=== PATIENT | male | born 1955 | race African-American/Black ===

== ENCOUNTER 2016-12-26 17:38 | Inpatient (IN) | payer OTHER ==
[~2016-12-26] VITALS: Ht 167.6 cm; Wt 72.6 kg
--- NOTE | ~2016-12-26 | EKG ---
[address] [place] [address] ELECTROCARDIOGRAM REPORT Name: TONYA KITCHEN Room #: 416-P ADM IN M.R.#: [id number] Admission: 12/26/16 Attend Phys: Olga Hurtado MD Discharge: Date of : 57 Report #: [id number] THIS REPORT FOR: //name// [facility] ED Test Date: 2016-12-26 Test Time: 17:48:06 Pat Name: TONYA KITCHEN Department: Room: 416 P Gender: M Rn Psych: MARY : 1955 Requested By: Gunner Guardado Order Number: [id number] MD: Bubba Cruz Measurements Intervals [place] Rate: 97 P: 77 SD: 157 QRS: -48 QRSD: 113 T: QT: 361 QTc: 459 Interpretive Statements Sinus rhythm Left ventricular hypertrophy with repolarization abnormality Inferior infarct, old Poor R wave progression Baseline wander in lead(s) V3 Compared to ECG 08/05/2016 06:55:39 No significant changes Electronically Signed On 12-27-2016 7:28:19 CDT by Bubba Cruz [email or web address] <ELECTRONICALLY SIGNED> By: Bubba Cruz MD, [facility] 12/27/16 0728 1748 1748 Bubba Cruz MD, [facility] /EPI
--- NOTE | ~2016-12-26 | EKG ---
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 : 1955 Requested By: Gunner Guardado Order Number: [id number] MD: Bubba Cruz Measurements Intervals [place] Rate: 93 P: 74 [place]: 154 QRS: -51 QRSD: 115 T: -48 QT: 369 QTc: 459 Interpretive Statements Sinus rhythm Nonspecific IVCD with LAD Left ventricular hypertrophy with repolarization abnormality Inferior infarct, age indeterminate Compared to ECG 08/05/2016 06:55:39 No change Electronically Signed On 12-27-2016 7:28:46 CDT by Bubba Cruz [email or web address] <ELECTRONICALLY SIGNED> By: Bubba Cruz MD, [facility] 12/27/16 0728 1759 1759 Bubba Cruz MD, [facility] /EPI
--- NOTE | ~2016-12-26 | HC ---
[facility] [place] [address] CONSULTATION Name: TONYA KITCHEN JR Room #: 416-P [facility] IN M.R.#: [id number] Admission: 12/26/16 Attend Phys: Olga Hurtado MD Discharge: 12/30/16 Date of : 57 Report #: [id number] THIS REPORT FOR: //name// CC: Randall Cruz MD [facility] physician/PCP Olga Hurtado MD Clinic HISTORY OF PRESENT ILLNESS: The patient is a very pleasant 61-year-old after male originally from [place], [place] who came to the Emergency Room with sudden onset of the left abdominal pain and flank pain. He has a history of kidney stones and that what was found to be was the left side obstructing ureteral calculi, was admitted for this. REASON FOR CONSULTATION: Abnormal CAT scan. As part of his workup, he had CAT scans that without contrast of the chest, abdomen and pelvis. CT of the chest raised a question of a two right-sided lung nodules, one in the right middle lobe, the other in the right upper lobe and determine the nature with "moderate mediastinal adenopathy present and fullness of the hilum is present, small hilar lymph nodes may also be present. Note, this was done without IV contrast, there whether this may be a malignant process of unknown etiology, and suggest that CT abdomen and pelvis with IV and oral contrast, the patient's abdomen and pelvis contrast had showed two calculi in the left ureteral causing trouble one 6 and one 6.5 mm. LABORATORY DATA: Done here show a BUN 16, creatinine of 1.1. Glucose 119. AST on admission had been 43, albumin had been normal. ALT had been elevated a 71, white cell count 6.3, hemoglobin 13.1, platelets 235. Differential fairly nonacute. UA did show some red cells. PAST MEDICAL HISTORY: Notable for coronary artery disease and stenting, also hypertension, hyperlipidemia, gastroesophageal reflux disease, nephrolithiasis, supposedly systolic heart failure with an EF of 30%. PAST SURGICAL HISTORY: Includes stenting times 2, lithotripsy. FAMILY HISTORY: Father had diabetes, cholesterol difficult and hypertension, mother no specific health issues, four brothers alive and well, two sisters alive and well. 4 children without health issues. 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 He likes reading mysteries and also science fiction. He has watched quite a few shows on [employer] including Nanosys, The 100, Marcella Norris Chronicles of [facility]. Smoked about a half pack a day for 40 [facility] [address] [place] [address] CONSULTATION Name: TONYA KITCHEN Room #: 416-P [facility] IN M.R.#: [id number] Admission: 12/26/16 Attend Phys: Olga Hurtado MD Discharge: 12/30/16 Date of : 57 Report #: [id number] years. Alcohol, occasional, glass of wine. No street drugs. REVIEW OF SYSTEMS: As above. Denies fevers, chills. Did have queasy stomach, has not had bowel movement in probably about a week. He has never had a colonoscopy or EGD, he is not aware of any blood in his urine or stool. No arm or leg swelling. No weight change, no significant breathing difficulties. No coughing of blood. PHYSICAL EXAMINATION: GENERAL: The patient appears his stated age. He is alert and oriented x 3. Height is 5 feet 6 inches, which is 167.6 cm, weight 160 pounds, which is 72.6 kilograms. VITAL SIGNS: Blood pressure is 113/65, O2 sat 92%, respirations 14, temperature 97.1, pulse is 86. MOOD: The patient is alert and pleasant, somewhat anxious. NEUROLOGIC: Face is symmetrical, he was moving all extremities. Speech pattern is normal. LYMPHATICS: No lymph nodes enlargement, supraclavicular, cervical, axillary or inguinal region. ABDOMEN: Soft, without masses, is slightly obese. EXTREMITIES: Without clubbing, cyanosis or edema. ASSESSMENT AND PLAN: 1. Indeterminate nodules and possible lymphadenopathy, we will order CT chest, abdomen and pelvis with contrast. The patient given is my card if he goes home, this could be he could called me for results as outpatient, depending upon results might consider bronchoscopy or just follow up 2. Kidney stones. We will defer to Dr. Churchill notice. 3. History of coronary artery disease, hypertension. Defer to Dr. Cruz and doctors at the [facility]. 4. Gastroesophageal reflux disease. Defer to those other doctors. 5. Systolic heart failure. Continues lisinopril and carvedilol, followup will depend upon results. The patient will call for results. CURRENT MEDICATIONS: In the hospital include MiraLax 17 grams daily, nicotine 14mg patch daily, Xanax 0.5 t.i.d., bisacodyl p.r.n., docusate 100 b.i.d., lisinopril 10 daily, 81 mg aspirin daily, carvedilol 6.25 b.i.d. At home, his medications have included Plavix 75 daily, carvedilol 6.25 b.i.d., lisinopril 10 daily, spironolactone 50 daily, aspirin 81 daily and Lasix 40 mg daily. <ELECTRONICALLY SIGNED> By: Lj Silverman MD 12/30/162004 0821 1523 Lj Silverman MD /nt
--- NOTE | ~2016-12-26 | H ---
[facility] [place] [address] HISTORY AND PHYSICAL Name: TONYA KITCHEN JR Room #: 416-P [facility] IN .R.#: [id number] Admission: 12/26/16 Attend Phys: Olga Hurtado MD Discharge: 12/30/16 Date of : 57 Report #: [id number] THIS REPORT FOR: //name// CC: FAM physician/PCP Olga Hurtado DATE OF SERVICE: 12/26/2016 ATTENDING PHYSICIAN: Dr. Olga Hurtado. PRIMARY CARE PHYSICIAN: At [facility]. CHIEF COMPLAINT: Left flank and left abdominal pain. HISTORY OF PRESENT ILLNESS: The patient is a 61-year-old -Togol[place] male, who came into the ER with sudden onset left-sided abdominal pain and flank pain. He says the pain started in his left flank area and radiates around his left lower abdomen and into his groin area. It started today and has remained constant. He says that some of the groin pain is worse when he tries to urinate. Overall he did have some difficulty producing urine today and was only able to produces few dribbles. He had one episode of nausea with vomiting. He has a history of nephrolithiasis and says this feels somewhat similar. He was noted in the ER to have left-sided obstructing ureter calculi and has been admitted for further treatment. PAST MEDICAL HISTORY: Coronary artery disease, hypertension, hyperlipidemia, GERD, nephrolithiasis, systolic heart failure with an EF of 30%. PAST SURGICAL HISTORY: Coronary stent x 2, and lithotripsy. ALLERGIES: None. HOME MEDICATIONS: Plavix 75 mg daily, carvedilol 6.25 mg b.i.d., lisinopril 10 mg daily, spironolactone 50 mg daily, aspirin 81 mg daily, Lasix 40 mg daily. SOCIAL HISTORY: The patient smokes half pack of cigarettes per day. He has been smoking for at least 40 years. He does drink an occasional glass of wine. Denies any drug use. 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 FAMILY HISTORY: Not pertinent to this hospitalization. REVIEW OF SYSTEMS: The patient was here in July for chest pain. At that time, he underwent a cardiac catheterization, which showed apical occlusion of the LAD. On the catheterization, his EF was 30%. Per records state that he was supposed to follow up with Cardiology in 3 months to further evaluate, if the medications he is on is helping his heart failure and also does state he was a [facility] [address] [place] [address] HISTORY AND PHYSICAL Name: TONYA KITCHEN Room #: 416-P [facility] IN [facility]#: [id number] Admission: 12/26/16 Attend Phys: Olga Hurtado MD Discharge: 12/30/16 Date of : 57 Report #: [id number] candidate for an AICD. He says he thinks he saw a new trackless trolley driver at the [facility] since he was discharged, but he is not sure if he had a followup echocardiogram. LABORATORY DATA AND DIAGNOSTICS: WBC is 8.7, hemoglobin 14.5, platelets 250. Sodium 133, potassium 4.1, BUN 15, creatinine 1.3, glucose is 120. LFTs showed AST of and ALT of 71. Alkaline phosphatase 104, lipase is 120. UA showed 3+ blood, negative leukocyte esterase, negative wbc's, there was 3+ blood, bacteria few. CT of abdomen and pelvis done without contrast shows 2 calculi producing proximal left ureteral obstruction; this includes a 6 x 6.4 mm size calculus in the left UPJ and the second 4 x 5 x 6.5 mm calculus in the left ureter at the level of the upper SI joint. There are several additional slightly larger calculi within the central and lower left kidney. There is an incidental finding of a noncalcified nodule on the left aspect of the right middle lobe, this measures 10 x 14 mm. ASSESSMENT AND PLAN: 1. Left obstructing ureteral calculi. We will keep him n.p.o. and have Urology evaluate, start Flomax. We will hold off on any aggressive IV fluids, because of his underlying heart failure status. 2. Chronic systolic heart failure. The patient has last known ejection fraction of 30%. He did receive some fluid in the Emergency Room. We will hold off on any further aggressive IV fluids and continue home meds. At this time, we will hold his diuretics. He will need to follow up with his Cardiology outpatient to further evaluate if he needs an automatic implantable cardioverter-defibrillator placement. 3. History of heart disease with stents. The patient is denying any chest pain. 4. Hypertension. Blood pressure is stable, continue home meds. 5. Hyperlipidemia. This has been stable. 6. Deep venous thrombosis prophylaxis. Place sequential compression devices. We will continue to follow the patient closely throughout the hospitalization and make changes based on clinical status. <ELECTRONICALLY SIGNED> By: SHYANN Velasco 12/31/16 0658 0603 0640 SHYANN Velasco /nt
--- NOTE | ~2016-12-26 | O ---
[facility] [place] [address] OPERATIVE REPORT Name: TONYA KITCHEN JR Room #: 416-P ADM IN M.R.#: [id number] Admission: 12/26/16 Attend Phys: Olga Hurtado MD Discharge: Date of : 57 Report #: [id number] THIS REPORT FOR: //name// CC: SEE physician/PCP Olga Hurtado SURGEON: Randall Churchill MD UNDERWRITING SALES REPRESENTATIVE: None. PREOPERATIVE DIAGNOSIS: Left ureteral and renal calculi. POSTOPERATIVE DIAGNOSIS: Left ureteral and renal calculi. PROCEDURE: Left ureteroscopy with balloon dilation of ureteral orifice, laser lithotripsy, basket stone extraction, and 4.5 x 26 double-J ureteral stent placement. COMPLICATIONS: None. ANESTHESIA: General. ESTIMATED BLOOD LOSS: None. DESCRIPTION OF PROCEDURE: The patient was taken to the operating room, general anesthesia was induced. The patient was prepped and draped in usual sterile fashion in the dorsal lithotomy position. The meatus was entered with rigid cystoscope. Anterior urethra was normal other than some thin strictures, which dilated up easily with the scope. The prostate was entered and was mildly obstructing. The bladder mucosa was then examined and completely normal. Ureteral orifices were orthotopic bilaterally. Left ureteral orifice was then cannulated with a 0.035 sensor wire. This was advanced up into the kidney. The ureteral orifice was way too tight to accommodate the semi-rigid ureteroscope. I therefore balloon dilated this with an 18-Ugandan x 4 cm UroMax balloon. I then performed semi-rigid ureteroscopy. Two ureteral stones were encountered. These were too large to basket and remove. These were fragmented using a holmium laser with 365 micron fiber. I then used 1.9 Ugandan Nitinol basket to basket and remove all of the stones. I then placed a dual lumen catheter and a second wire was then placed. I then placed a 09/18 ureteral access sheath. I then performed digital flexible ureterorenoscopy. There were numerous small stones which were basketed and removed. There was one large one that was too large to remove. I placed it in the upper pole and then used a 200 micron fiber with the holmium laser to fragment it. All significant pieces were basketed and removed. There were no residual fragments. The ureter was inspected. There were no residual ureteral fragments. I therefore withdrew the ureteroscope and access [address] [address] OPERATIVE REPORT Name: TONYA KITCHEN Room #: 416-P [facility] IN ..#: [id number] Admission: 12/26/16 Attend Phys: Olga Hurtado MD Discharge: Date of : 57 Report #: [id number] sheath. I then replaced the cystoscope. A 4.5 x 26 double-J ureteral stent was advanced over the wire. The dangle was removed and the stent was deployed. Excellent curl was seen proximally and distally. The patient tolerated the procedure well. He is away from anesthesia and transferred to recovery in satisfactory condition. There were no immediate complications. He was counseled extensively preoperatively on the importance of followup for stent removal. He will follow up with me next week to have his stent removed. We also discussed his lung nodule. Risk of malignancy discussed. He will follow up with his primary care physician regarding this. <ELECTRONICALLY SIGNED> By: Randall Churchill MD 12/28/16 1014 2036 2302 Randall Churchill MD /nt
[~2016-12-26 17:38] MED LIST: ACETAMINOPHEN325 M1 PO; ADULT LOW DOSE81 MG PO; ASPIRIN EC81 M1 PO; ASPIRIN81 M2; ATORVASTATIN CA40 MG PO; CARVEDILOL6.25 MG PO; CLOPIDOGREL75 MG PO; HIGH BP MED; HIGH CHOLESTEROL; LASIX 20 MG TAB20 MG PO; LIPITOR40 MG PO; LISINOPRIL10 MG PO; LISINOPRIL2.5 MG PO; LISINOPRIL5 MG PO; LOPRESSOR 12.12.5 MG PO; LOPRESSOR25 PO; NITROGLYCERIN0.4 MG SL; NOHOMEMEDICATIONS; PEPCID AC20 M1 PO; PLAVIX 75 MG TA75 M1 PO; PRILOSEC 20 MG20 MG PO; SPIRONOLACTONE25 M1 PO; ZANTAC 150MG T150 MG PO
[2016-12-26 17:41] VITALS: BP 167/101
[2016-12-26 18:13] LABS: HEMATOCRIT 42.8 % (42.0-52.0); HEMOGLOBIN 14.5 gm/dL (14.0-18.0); MCH 32.2 pg (26.0-34.0); MCHC 33.8 g/dL (28.0-37.0); MCV 95.1 fL (80.0-100.0); RDW 13.9 % (10.5-14.5); WBC 8.7 thou/uL (4.0-11.0)
[2016-12-26 18:14] LABS: ABSOLUTE NEUTROPHILS 6.3 thou/uL (1.4-8.2); BASOPHILS 0.6 % (0.0-2.0); EOSINOPHILS 0.3 % (0.0-3.0); LYMPHOCYTES 20.6 % (24.0-44.0); PLATELET COUNT 250 thou/uL (150-400); POLYS 72.5 % (36.0-66.0)
[2016-12-26 18:17] LABS: MANUAL DIFF NO
[2016-12-26 18:26] LABS: CALCIUM 8.9 mg/dL (8.5-10.1); CREATININE 1.3 mg/dL (0.6-1.3); POTASSIUM 4.1 mmol/L (3.5-5.1)
[2016-12-26 18:30] LABS: ALBUMIN 3.9 g/dL (3.4-5.0); TOTAL BILIRUBIN 0.4 mg/dL (<0.1-1.0); TOTAL PROTEIN 7.2 g/dL (6.4-8.2)
[2016-12-26 19:08] LABS: URINE BILIRUBIN NEGATIVE (Negative); URINE BLOOD 3+ (Negative); URINE COLOR YELLOW; URINE GLUCOSE-RANDOM* NEGATIVE (Negative); URINE KETONES TRACE (Negative); URINE LEUKOCYTES-REFLEX NEGATIVE (Negative); URINE PROTEIN (DIPSTICK) NEGATIVE (Negative); URINE SPECIFIC GRAVITY 1.025 (1.003-1.035); URINE UROBILINOGEN 0.2 E.U./dl (0.2-1.0)
[2016-12-26 19:25] LABS: CASTS None Seen /LPF (None Seen); CRYSTALS None Seen /LPF (None Seen); SQUAMOUS 0-3 Few /LPF (0-3); URINE WBC-REFLEX 0-5 Rare /HPF (0-5); WBC CLUMPS Few (None Seen)
[2016-12-26 20:35] VITALS: BP 149/76
[2016-12-27] VITALS (8 sets, daily range): BP systolic 128–154; BP diastolic 70–98
[2016-12-28] VITALS: BP 148/91
[2016-12-28 01:30] VITALS: BP 131/71
[2016-12-28 05:23] LABS: HEMATOCRIT 41.9 % (42.0-52.0); HEMOGLOBIN 13.9 gm/dL (14.0-18.0); MCH 31.7 pg (26.0-34.0); MCHC 33.1 g/dL (28.0-37.0); MCV 95.8 fL (80.0-100.0); RBC 4.37 mil/uL (4.50-6.00); RDW 13.5 % (10.5-14.5); WBC 7.2 thou/uL (4.0-11.0)
[2016-12-28 05:37] LABS: CALCIUM 8.3 mg/dL (8.5-10.1); CREATININE 1.7 mg/dL (0.6-1.3); POTASSIUM 4.8 mmol/L (3.5-5.1)
[2016-12-28 08:00] VITALS: BP 137/85
[2016-12-28 16:00] VITALS: BP 125/72
[2016-12-28 20:15] VITALS: BP 146/80
[2016-12-29 04:57] VITALS: BP 141/86
[2016-12-29 05:32] LABS: HEMOGLOBIN 13.5 gm/dL (14.0-18.0); MCH 32.5 pg (26.0-34.0); MCHC 33.9 g/dL (28.0-37.0); MCV 95.9 fL (80.0-100.0); RBC 4.17 mil/uL (4.50-6.00); RDW 13.5 % (10.5-14.5); WBC 8.1 thou/uL (4.0-11.0)
[2016-12-29 05:47] LABS: CALCIUM 8.5 mg/dL (8.5-10.1); CREATININE 1.2 mg/dL (0.6-1.3); POTASSIUM 4.3 mmol/L (3.5-5.1)
[2016-12-29 08:00] VITALS: BP 124/61
[2016-12-29 12:00] VITALS: BP 152/77
[2016-12-29 16:00] VITALS: BP 144/89
[2016-12-29 20:00] VITALS: BP 115/59
[2016-12-30 04:39] VITALS: BP 113/65
[2016-12-30 06:56] LABS: HEMATOCRIT 39.1 % (42.0-52.0); HEMOGLOBIN 13.1 gm/dL (14.0-18.0); MCHC 33.6 g/dL (28.0-37.0); MCV 95.2 fL (80.0-100.0); RBC 4.1 mil/uL (4.50-6.00); RDW 13.5 % (10.5-14.5); WBC 6.3 thou/uL (4.0-11.0)
[2016-12-30 07:05] LABS: CALCIUM 8.2 mg/dL (8.5-10.1); CREATININE 1.1 mg/dL (0.6-1.3); POTASSIUM 3.9 mmol/L (3.5-5.1)
[2016-12-30 08:00] VITALS: BP 122/78
[2016-12-30 08:35] LABS: ALKALINE PHOSPHATASE 93 U/L (46-116); DIRECT BILIRUBIN < 0.1 mg/dL (<0.1-0.3); SGOT 32 U/L (15-37); SGPT 56 U/L (30-65); TOTAL BILIRUBIN 0.4 mg/dL (<0.1-1.0); TOTAL PROTEIN 6.1 g/dL (6.4-8.2)
[2016-12-30] MEDS ORDERED: NICOTINE TRANSD14 M1 TRANSDERM (13:02)
[2016-12-30] MEDS ORDERED: HYDROCODONE-AP1 EAC6 PO (13:02)
[2016-12-30] MEDS ORDERED: XANAX 0.5 MG0.5 MG PO (13:02)
[2016-12-30 14:19] VITALS: BP 122/78
== END 2016-12-30 15:32 | disposition home or self-care (01) | DRG 668 ==
LOC: ER 17:38 → 4N 19:32 → EROBS 19:32 → 4N 20:07
PROVIDERS: Emergency Medicine; Family Medicine; Internal Medicine Hematology & Oncology
DX: N20.2 Calculus of kidney with calculus of ureter (principal); N17.0 Acute kidney failure with tubular necrosis; I13.0 Hypertensive heart and chronic kidney disease with heart failure and stage 1 through stage 4 chronic kidney disease, or unspecified chronic kidney disease; I50.22 Chronic systolic (congestive) heart failure; R91.1 Solitary pulmonary nodule; E78.5 Hyperlipidemia, unspecified; F41.9 Anxiety disorder, unspecified; K21.9 Gastro-esophageal reflux disease without esophagitis; N18.2 Chronic kidney disease, stage 2 (mild); I25.10 Atherosclerotic heart disease of native coronary artery without angina pectoris; F17.210 Nicotine dependence, cigarettes, uncomplicated; R74.0 Nonspecific elevation of levels of transaminase and lactic acid dehydrogenase [LDH]; R59.0 Localized enlarged lymph nodes; Z95.5 Presence of coronary angioplasty implant and graft; Z87.442 Personal history of urinary calculi; Z83.3 Family history of diabetes mellitus; Z82.49 Family history of ischemic heart disease and other diseases of the circulatory system; Z79.82 Long term (current) use of aspirin; Z79.899 Other long term (current) drug therapy
CPT/HCPCS: 10091; 50010; 50101; 50164; 50478; 51776; 53331; 53650; 56815; 62110; 62900; 70005

== ENCOUNTER 2017-04-03 05:22 | Day surgery (SDC) | payer OTHER ==
[~2017-04-03] VITALS: Ht 167.6 cm; Wt 76.6 kg
--- NOTE | ~2017-04-03 | CNG ---
[facility] Evelyn Guillaume [place] [address] CYTO-NONGYN REPORT PROCEDURE Name: CHRISTIAN FERNANDO Room #: DEP [facility]#: [id number] Admission: 04/03/17 Date of : 57 Discharge: 04/03/17 Report #: [id number] Path Case #: [id number] CYTOPATHOLOGY REPORT COLLECTION DATE: 04/03/2017 RECEIVED DATE: 04/03/2017 SUBMITTING PHYS: Dr. Liban Arriaga OTHER PHYS: CLINICAL HISTORY: Mediastinal adenopathy, pulmonary nodules. See also [id number]. PROCEDURE: A. Passes performed by Dr. Arriaga yielding fluid. Four H and E slides, and 50 mL from needle rinsed in formalin were submitted to the lab. . SPECIMEN(S) RECEIVED: A.EBUS guided Fine needle aspiration, lymph node 4R B.Bronchoalveolar lavage, RML * * * * * * * * * * * * FINAL DIAGNOSIS: A. 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 B. Lung, right middle lobe, bronchoalevolar lavage: - RARE ATYPICAL CELLS IDENTIFIED, LIKELY REACTIVE. - Numerous reactive bronchial epithelial cells, and alveolar macrophages present in the background. (IUV:malik; 04/07/2017) COMMENT: Examination shows cohesive groups of cells with scattered rare areas of apoptotic bodies, necrosis, as well as nuclear molding. Occasional to rare nucleoli are present. The malignant groups show ample cytoplasm in scattered groups. Immunohistochemical stains are performed on the cell block material (part A of this case). P63: Nonreactive TTF1: Reactive P40: Nonreactive Napsin: Nonreactive Synaptophysin: Granular reactivity present CD56: Membranous reactivity present Based on the morphologic features as well as the immunohistochemical stains, the tumor represents a high grade neuroendocrine carcinoma. There are few groups of small cell, and other groups of large cell identified. The tumor may represent a combination of small cell neuroendocrine carcinoma as well as a large cell neuroendocrine [facility] [address] [place] [address] CYTO-NONGYN REPORT PROCEDURE Name: CHRISTIAN FERNANDO Room #: [facility].#: [id number] Admission: 04/03/17 Date of : 57 Discharge: 04/03/17 Report #: [id number] Path Case #: [id number] carcinoma. Portion of this specimen was sent for flow cytometric analysis to [facility], ([id number]) and it showed a specimen with low viability and no abnormal cell population in the analyzed cells. Please see separate report for details. Co-review: Dr. Nida Beth Findings of this case are discussed with Dr. Liban Arriaga at approximately 5:00 p.m. on 03/08/2017. PATHOLOGIST: Hortencia Mullins M.D. REPORT ELECTRONICALLY SIGNED BY: Hortencia Mullins M.D. DATE/TIME: 04/07/2017 16:01 * * * * * * * * * * * * GROSS PATHOLOGY: A. EBUS guided Fine needle aspiration, lymph node 4R: The specimen is labeled "Christian Fernando JR" and consists of four H and E slides. Fifty mL of brown fluid in formalin from the needle rinse is also submitted and a cell block only was prepared from this material. RPMI sent to [facility] by [facility]. Wright Bronchoalveolar lavage, RML: The specimen is submitted unfixed, labeled "Christian Fernando JR". Received by the Cytology Department is 15 mL of red fluid. One ThinPrep slide was prepared. (clt 04.03.2017) IMMEDIATE EVALUATION: A. Pass1: Per Dr. Beth: Atypical cells present and blood, please redirect. B. Pass 7: Redirected pass. Atypical cells, lymphoid tissue present and blood. Professional services performed under supervision of [facility] Classification Counselor at [address] [place] [address] , [place] [address]. SHOWROOM SALES ASSISTANT(S): HOWIE Marsh(ASCP) INITIAL CPT CODE(S): A; 69096, 84080, 69382, 32463, 32137, 01986, 61198, 51883, 86065, 01789 B; 58510 Professional services performed by [facility] at [address] , [place] [address] Technical services performed by [facility] at [address] [place] [address], [address], [place] [address]. CC: Dr. Kunal Dobbins [address] [address] CYTO-NONGYN REPORT PROCEDURE Name: CHRISTIAN FERNANDO JR Room #: DEP [facility] Alicia#: [id number] Admission: 04/03/17 Date of : 57 Discharge: 04/03/17 Report #: [id number] Path Case #: [id number] [facility], [address] [place] [address] PHONE: [phone] DIRECTOR: Mich Ordoñez M.D. * * * END OF REPORT * * *
--- NOTE | ~2017-04-03 | S ---
[facility] [place] [address] SURGICAL PATH RPT PROCEDURE Name: CHRISTIAN FERNANDO Room #: DEP [facility]#: [id number] Admission: 04/03/17 Date of : 57 Discharge: 04/03/17 Report #: [id number] Path Case #: [id number] PATHOLOGY REPORT COLLECTION DATE: 04/03/2017 RECEIVED DATE: 04/03/2017 SUBMITTING PHYS: Dr. Liban Arriaga OTHER PHYS: Dr. Lluvia Baez SPECIMEN(S) RECEIVED: A.Biopsy forceps RUL * * * * * * * * * * * * FINAL DIAGNOSIS: Lung, right upper lobe, bronchial biopsy: - Negative for malignancy. - Mild chronic inflammation as well as reactive changes. COMMENT: Co-review: Dr. Nida Beth. The EBUS fine needle aspiration of the lymph node 4R ([id number] part A) showed malignant cells with features of high grade neuroendocrine carcinoma. Please see separate report for details. (IUV/db; 04/07/2017) PATHOLOGIST: Hortencia Mullins M.D. REPORT ELECTRONICALLY SIGNED BY: Hortencia Mullins M.D. DATE/TIME: 04/07/2017 16:01 * * * * * * * * * * * * GROSS PATHOLOGY: The specimen is received in formalin labeled "Christian Fernando, biopsy forceps RUL". Received are multiple minute fragments of pale arora soft tissue mixed with a slight amount of possible blood coagulum measuring 0.3 x 0.3 x 0.1 cm in aggregate dimensions. The specimen is filtered and entirely submitted in cassette A1. (CAA; 04/04/2017) CLINICAL HISTORY: None provided INITIAL CPT CODE(S): A; 59670 Professional services performed by [facility] at [facility] [address] [place] [address] SURGICAL PATH RPT PROCEDURE Name: CHRISTIAN FERNANDO Room #: DEP [facility] Alicia#: [id number] Admission: 04/03/17 Date of : 57 Discharge: 04/03/17 Report #: [id number] Path Case #: [id number] [address], [place] [address] Technical services performed by [facility] at [address] [place] [address], [facility] [address] [address]. [place] [address] PHONE: [phone] DIRECTOR: Mich Ordoñez M.D. * * * END OF REPORT * * *
[~2017-04-03 05:22] MED LIST changes: +COREG6.25 MG PO; +HYDROCODONE-AP1 EAC6 PO; +KLOR-CON 1010 MEQ PO; +LASIX 40 MG TAB40 M2 PO; +NICOTINE TRANSD14 M1 TRANSDERM; +PLAVIX 75 MG TA75 MG PO; +TUMS PO; +XANAX 0.5 MG0.5 MG PO
[2017-04-03 06:57] LABS: HEMATOCRIT 41.1 % (42.0-52.0); MCH 31.7 pg (26.0-34.0); MCV 93.2 fL (80.0-100.0); RBC 4.41 mil/uL (4.50-6.00); RDW 14.1 % (10.5-14.5); WBC 5.8 thou/uL (4.0-11.0)
[2017-04-03 07:09] LABS: CALCIUM 9.3 mg/dL (8.5-10.1); CREATININE 1.1 mg/dL (0.7-1.3); POTASSIUM 4.3 mmol/L (3.5-5.1)
[2017-04-03 07:37] VITALS: BP 126/78
[2017-04-03 10:41] LABS: BF NUCLEATED CELLS 658; BF RBC 11407
[2017-04-03 10:43] LABS: CLARITY TURBID; COLOR RED; MANUAL DIFF YES; TOTAL VOLUME 20 mL
[2017-04-03 12:01] LABS: BF NEUTROPHILS 3
[2017-04-08 15:11] LABS: BF MACROPHAGE 91
== END 2017-04-03 06:00 | disposition home or self-care (01) ==
LOC: OR 05:22 → TBA 05:22 → OR 06:00
PROVIDERS: Internal Medicine Pulmonary Disease
DX: R91.1 Solitary pulmonary nodule (principal)
CPT/HCPCS: 62110; 62900; 70005

== ENCOUNTER 2017-04-07 09:04 | Emergency (ER) | payer OTHER ==
[~2017-04-07] VITALS: Ht 167.6 cm; Wt 77.6 kg
[2017-04-07] MEDS ORDERED: KEFLEX500 MG PO (09:47)
[2017-04-07] MEDS ORDERED: HYDROCODONE-AP1 EAC6 PO (10:33)
== END 2017-04-07 09:48 | disposition home or self-care (01) ==
LOC: ER 09:04
DX: L72.3 Sebaceous cyst (principal); I11.0 Hypertensive heart disease with heart failure; I50.9 Heart failure, unspecified; E78.5 Hyperlipidemia, unspecified; K21.9 Gastro-esophageal reflux disease without esophagitis; I25.10 Atherosclerotic heart disease of native coronary artery without angina pectoris; I25.2 Old myocardial infarction; F17.210 Nicotine dependence, cigarettes, uncomplicated; F10.99 Alcohol use, unspecified with unspecified alcohol-induced disorder; Z95.5 Presence of coronary angioplasty implant and graft